=== PATIENT | male | born 1940 | race Caucasian/White ===

== ENCOUNTER 2018-02-08 08:22 | Inpatient (IN) | payer MEDICARE, OTHER, SELFPAY ==
[2018-01-31 14:04] VITALS: BMI 28.3
[2018-02-08] VITALS (15 sets, daily range): BP systolic 99–144; BP diastolic 49–86; PULSE 52–67; RESP 6–20; TEMP 35.5–36.2; O2SAT 93–100; BMI 28.3
--- NOTE | 2018-02-08 | DI.RAD.S_ITS ---
PROCEDURE: XR LUMBAR SPINE 2-3V INDICATIONS: TLIF TECHNIQUE: 2 views of the lumbar spine were acquired. COMPARISON: [facility], , L-SPINE 2-3 VIEWS, 09/29/2009, 8:34. FINDINGS: Bones: Intraoperative evaluation after placement of transverse pedicle screws and vertical fixation rods and a interbody L5-S1 cage disc prostheses. Soft tissues: Overlying bowel gas pattern is normal. No suspicious soft tissue calcifications. IMPRESSION: Normal alignment after L5-S1 posterior fixation and interbody cage disc prosthesis. Dictated by: Jerry Dorantes M.D. on 02/08/2018 at 16:17 Approved by: Jerry Dorantes M.D. on 02/08/2018 at 16:18
[2018-02-08] MEDS: LACTATED RINGERS 1,000 ML 42 ML IV ×2 (09:40→14:48)
--- NOTE | 2018-02-08 11:46 | PM.PREOP ---
Pre-operative Note Interval Note Pre-op Check: Yes History & Physical Reviewed by Physician and Yes Exam Performed Changes: No
--- NOTE | 2018-02-08 12:21 | P.OP_ITS ---
Operative Date/Time/Diagnoses Date of procedure: 02/08/18 Time of procedure: 16:13 Pre-op diagnosis: Lumbar stenosis with radiculopathy Post-op diagnosis: same Procedure & Clinicians Procedure: L3-4, L4-5, L5-S1 laminectomy L5-S1 TLIF (post/post innerbody fusion) Cage Screws at L5-S1 Iliac crest bone graft Microscope Placement of epidural catheter Same procedure as scheduled: Yes Indications: [age] year old male with intractable pain from stenosis. They had failed conservative management and requested operative intervention. Risks and benefits of surgery were discussed and appropriate consents were obtained. Surgeon: Jose Pedroza Tax Accounting Manager: Lianet Ruby Anesthesia Type: General Operative Notes Findings: none Closure Type: primary Specimen(s): none sent Implants & Drains: NuVasive open and MAS Reline screws Globus Rise cage Applied: catheter Estimated Blood Loss (mL): 50 Procedure in detail: The patient was brought to the operating room and intubated on the table. A time-out was performed. They were then rolled over to the well-padded Emil table in the prone position. Preoperative antibiotics were given. The back was prepped and draped in the standard sterile fashion. A 8 cm incision was made in the midline. We dissected down the right sided paraspinals to expose the lamina out over the facets to the transverse processes at L5 and S1 as well as the lamina up to L3. A bur was used to decorticate the junction of the transverse process and facet. We then advanced a gear shifter down the right pedicle of L5 using neuromonitoring. We then checked with a ball probe for a floor and four sanchez. We then tapped and again checked with a ball probe. A bur was used to decorticate the transverse process and the L5 screw was placed into the pedicle. The same technique was used to place a screw in the S1 pedicle. Using a combination of bur and Kerrison rongeur a laminectomy was performed from the right side. We cleared over past the midline and carefully depressed the dura until we were able to decompress the opposite side. We cleared out the neural foramen. At L5-S1 we had to perform a complete facetectomy to fully open up the neural foramen. This completed the laminectomies at L3-4, L4-5 and L5-S1. We then began the TLIF prep. We carefully cleaned up the remainder of the foramen until we could easily retract the exiting root as well as clearing medially below the dura and expose the disc space. The disc was prepped with bipolar and then an annulotomy was performed. We performed a diskectomy using a combination of paddles, ariadna, Kerrison, and curettes. We distracted the disc using a paddle and locked the retractor in an open position. We then filled the disc space with Osteocell bone graft. We then placed the globus Rise cage under fluoroscopy and then filled this in with more bone graft. The distraction on the retractor was released to compress down. This completed the posterior interbody fusion portion of the TLIF at L5-S1. We then placed the salazar and locked down the set screws. The wound was copiously irrigated. A small stab incision was made over the PSIS. We used a Jamshidi needle to aspirate several mL of bone marrow from the pelvis. This was mixed with the remaining Osteocell and combined with all of the locally harvested bone graft and placed in the posterolateral gutter for the posterior fusion of the TLIF at L5-S1. An epidural catheter was then placed in the spinal canal by carefully depressing the dura and advancing it 6 cm cephalad under the remaining lamina without resistance. The muscle fascia was closed. The catheter was then injected with a solution containing 4 mL of 0.5% Marcaine, 1 mg Stadol, 4 mg Duramorph, and 100 mcg of fentanyl. This was injected without resistance and the catheter was pulled. Using fluoroscopy, a 3 cm left-sided incision was made over L5-S1. We percutaneously placed Jamshidi needles down the left pedicles of L5 and S1 using fluoroscopy and neural monitoring. These were switched out to guidewires , tapped and the MAS Reline screws were placed on the left at L5 and S1. A salazar was placed and locked down. Final x-rays were taken. The wound was irrigated and the fascia was closed. Vancomycin powder was placed in the wounds. The superficial and skin were closed. A sterile dressing was placed. The patient was then rolled over extubated and brought to recovery room without complications. Complications: none Condition: stable Disposition: PACU Plan for aftercare: Inpatient. Up with therapy.
[2018-02-08] MEDS: CEFAZOLIN 2 GM/100 ML FROZ.PIGGY IV ×2 (12:45→21:48)
--- NOTE | 2018-02-08 13:33 | SUR.OPER ---
Prone on spine table, head in foam head support, padded chest and pelvic supports, gel pad at knees, lower legs supported by pillows; nipples, genitalia and toes free of pressure, arms secured on foam padded arm boards at <90 degrees abduction. Tape over blanket at thigh secured to table.
[2018-02-08] MEDS: SODIUM CHLORIDE 0.9% 1,000 ML, GENTAMICIN 80 MG IRR ×2 (13:58)
[2018-02-08] MEDS: THROMBIN (BOVINE) 5,000 UNIT VIAL 5000 UNIT TOP (13:59)
[2018-02-08] MEDS: VANCOMYCIN 1,000 MG VIAL 1000 MG TOP (14:21)
[2018-02-08] MEDS: BUPIVACAINE 0.5% (PF) 4 ML, MORPHINE-PF 4 MG, BUTORPHANOL 1 MG, fentaNYL 100 MCG INJ (15:24)
--- NOTE | 2018-02-08 16:56 | SUR.PHASEI ---
Bilateral lower extremities pink with strong pedal pulses. pt still sleeping unable to follow commands.
--- NOTE | 2018-02-08 17:06 | SUR.PHASEI ---
equal and strong grasps bilateral.
[2018-02-08] MEDS: LACTATED RINGERS 1,000 ML 125 ML IV (18:59)
--- NOTE | 2018-02-08 21:54 | PC.NURSE ---
PATIENT REMAINS VERY SEDATE,SLEEPING .WAKES BIEFLY BUT RIGHT BACK TO SLEEP,PO MEDS HELD FOR SAFETY
[2018-02-09] MEDS: LACTATED RINGERS 1,000 ML 125 ML IV (02:07)
[2018-02-09] MEDS: CEFAZOLIN 2 GM/100 ML FROZ.PIGGY IV (05:13)
[2018-02-09 05:20] VITALS: BP 114/64; PULSE 64; RESP 16; TEMP 35.8; O2SAT 96
[2018-02-09 06:08] LABS: Hematocrit 39.4 % (41-53); Hemoglobin 13.5 g/dL (13.5-17.5)
--- NOTE | 2018-02-09 07:39 | PM.PNPO.1 ---
Subjective Date Patient Seen: 02/09/18 Time Patient Seen: 07:40 Interval history: He is doing well. Pain is 1/10. Exam Vital Signs (past 8 hours): - 02/08/18 23:40 02/09/18 05:20 Temperature 95.9 F L 96.5 F L Pulse Rate 52 L 64 Respiratory Rate 16 16 Blood Pressure 99/49 L 114/64 Pulse Oximetry 94 96 Oxygen Delivery Method Room Air Const Orientation: alert and oriented x3 Back/Spine/Pelvis Other: Moderate drainage on dressing. 5/5 motor both lower extremities Objective Labs Result Diagrams: 02/09/18 05:30 Labs: Laboratory Results - last 24 hr 02/09/18 05:30 Hgb 13.5 Hct 39.4 L Assessment & Plan Post-op Postoperative Procedures Operation Date: 02/08/18 10:45 Actual Procedures Side Surgeon p L3-S1 Laminectomies, L5-S1 Instrumented Posterior Fusion with Bone Graft Jose Pedroza MD he is doing very well. Change dressing. Mobilize with physical therapy. Anticipate discharge in 1-2 days. Quality VTE Deep Vein Thrombosis/Pulmonary Embolism Present on Admission: No
[2018-02-09 08:00] VITALS: BP 102/65; PULSE 68; RESP 16; TEMP 35.7; O2SAT 94
[2018-02-09] MEDS: DOCUSATE 100 MG CAPSULE PO ×2 (09:02→20:44)
[2018-02-09] MEDS: CELECOXIB 200 MG CAPSULE PO ×2 (09:02→20:44)
[2018-02-09] MEDS: PROPRANOLOL 10 MG TABLET 20 MG PO (09:02)
[2018-02-09] MEDS: HYDROCODONE/ACET 5/325 TABLET 1 TAB PO (09:03)
[2018-02-09] MEDS: DOXAZOSIN 4 MG TABLET 8 MG PO (09:28)
[2018-02-09] MEDS: NALBUPHINE 20 MG/ML AMPUL 5 MG IV (10:55)
[2018-02-09] MEDS: METOCLOPRAMIDE 10 MG/2 ML INJ IV (10:55)
--- NOTE | 2018-02-09 12:35 | PT.IPTN ---
Current Diagnoses Spinal stenosis, lumbar region with neurogenic claudication (02/08/18) Other intervertebral disc degeneration, lumbar region (02/08/18) Surgery Performed Operation Date: 02/08/18 10:45 Actual Procedures p L3-S1 Laminectomies, L5-S1 Instrumented Posterior Fusion with Bone Graft - Jose Pedroza MD Physical Therapy Treatment Note M2 PT-IP Current Condition Start: 02/09/18 12:56 Freq: NEEDED Status: Active Protocol: Document 02/09/18 11:05 AB (Rec: 02/09/18 13:19 AB [id number]) Physical Therapy Current Condition Current Condition Evaluation Date 02/09/18 Treatment Diagnosis s/p L3S1 TLIF and laminectomy; difficulties in walking Onset Date 02/08/18 Precautions Lumbar Precautions Log Roll No Twisting Limit Bending Lifting Restriction of 10 lbs Gait Belt above Incisional Area M3 PT-IP Subjective Start: 02/09/18 12:56 Freq: NEEDED Status: Active Protocol: Document 02/09/18 12:35 AB (Rec: 02/09/18 13:43 AB [id number]) Subjective Physical Therapy Visit Type Type Treatment Note Visit Start Time 12:35 Visit Stop Time 12:45 Total Visit Minutes 10 Number of CIGARETTE CATCHER Visits 0 Physical Therapy Visit Comments Patient Comments pt requested to go back to bed Therapy Pain Assessment Pain When Pain Assessed At Rest Pain Present Pain Present Pain Reported Location Lower Breast Intensity 4 Scale Used Numeric (1 - 10) Pain Management Techniques Re-positioning Timing of Activity with Medications M4 PT-IP Mobility and Gait Start: 02/09/18 12:56 Freq: NEEDED Status: Active Protocol: Document 02/09/18 12:35 AB (Rec: 02/09/18 13:43 AB [id number]) PT-Bed Mobility Assessment Sit to Supine Sit to Supine Standby Assistance PT-Transfer Assessment Sit to and From Stand Sit to and from Stand Contact Guard Assistance Equipment Transfer Assistive Device Gait Belt Front Wheeled Walker Orthotic/Prosthetic Devices or Brace: No Transfers Transfer Destination Bed Transfer Technique Stand Step Pivot Transfer Ability Level of Assist Contact Guard Assistance Use of Upper Extremities Comments Mobility Comments BP sitting on chair prior to transfers: 101/64 M5 PT-IP Objective Assessments Start: 02/09/18 12:56 Freq: NEEDED Status: Active Protocol: Document 02/09/18 11:05 AB (Rec: 02/09/18 13:19 AB [id number]) Orientation Orientation/Cognition Level of Alertness Alert Orientation Name Age Birthday Month Date Year Day of Week Place Situation Safety Awareness Decreased Safety Awareness Comments pt is alert but is sleepy but able to hold a conversation Gross Range of Motion Lower Extremity ROM Assessment Within Functional Limits Strength Lower Extremity Strength Assessment Left Impaired Knee 4-/5 Muscle Tone Muscle Tone WNL Yes M6 PT-IP Treatment Start: 02/09/18 12:56 Freq: NEEDED Status: Active Protocol: Document 02/09/18 12:35 AB (Rec: 02/09/18 13:43 AB [id number]) Physical Therapy Treatment Education Education Provided Precautions Weight Bearing Status Post-Op Packet Safety M7 PT-IP Assessment and Plan Start: 02/09/18 12:56 Freq: NEEDED Status: Active Protocol: Document 02/09/18 12:35 AB (Rec: 02/09/18 13:43 AB [id number]) PT Summary Assessment and Plan Potential Rehabilitation Potential Good Summary Impairments Pain ROM Strength Balance Tone Cognition Bed Mobility Transfers Gait Activity Tolerance Progress Towards Goals Slow Progress due to Medical Issues Slow Progress due to Activity Tolerance Assessment Summary pt continues to be limited due to decrease activity tolerance with c/o dizziness. will continue to assess. Goals Bed Mobility Goal Independent Transfer Goal Independent Front Wheeled Walker Gait Goal Independent Front Wheel Walker Gait Distance 200 Other Goals up/down 3 steps with L rail ascending Days to Meet Goals 3 Frequency of Treatment Frequency Of Treatment Twice a Day Treatment Plan Physical Therapy Treatment Plan Bed Mobility Training Transfer Training Gait Training Therapeutic Exercise Balance Retraining Post Op Education Discharge Planning Hot or Cold Pack Neuromuscular Re-ed Coordination Retraining Manual Therapy Other Recommendations and Next Treatment ambulation Focus Recommendations To Nursing Amount of Assist Needed 1 Person Assist Discharge Recommendations PT Discharge Recommendations Home with Assistance Equipment Needed for Home Before FWW: spouse stated that they Discharge can get one
[2018-02-09] MEDS: ONDANSETRON 4 MG/2 ML INJ IV (12:54)
--- NOTE | 2018-02-09 13:05 | PT.IIE ---
Current Diagnoses Spinal stenosis, lumbar region with neurogenic claudication (02/08/18) Other intervertebral disc degeneration, lumbar region (02/08/18) Surgery Performed Operation Date: 02/08/18 10:45 Actual Procedures p L3-S1 Laminectomies, L5-S1 Instrumented Posterior Fusion with Bone Graft - Jose Pedroza MD Surgical History (Last Updated 01/31/18 @ 15:29 by Alee Noel, RN) H/O arthroscopic knee surgery (Acute) History of cataract extraction (Acute) History of colonoscopy (Acute) S/P epidural steroid injection (Acute) History of carpal tunnel repair History of cataract removal with insertion of prosthetic lens History of tonsillectomy Medical History (Last Updated 01/31/18 @ 15:29 by Alee Noel, RN) BPH (benign prostatic hyperplasia) (Acute) Bradycardia (Acute) COPD (chronic obstructive pulmonary disease) (Acute) Hemangioma (Acute) History of migraine (Acute) History of vertigo (Acute) Low back pain (Acute) Right buttock pain (Acute) Physical Therapy Inpatient Evaluation/Re-Eval M1 PT/OT-IP Prior Functional Status Start: 02/09/18 12:56 Freq: NEEDED Status: Active Protocol: Document 02/09/18 11:05 AB (Rec: 02/09/18 13:19 AB [id number]) Medical Review Prior Functional Status Medical History Reviewed Yes Communication able to make needs known Mobility and Gait stated that he is independent with all mobilities and ambulation without AD Social History Household Members spouse Living Arrangements House Number of Floors (Floors) One Floor Number of Stairs To Enter/Railing? 3 Stairs into house w/ L rail ascending Home Environment Standard Height Toilet Walk in Shower Tub/Shower Built-In Shower Seat Home Equipment Manual Wheelchair Power Wheelchair/Scooter Grab Bars Near Toilet Employment Status Retired M2 PT-IP Current Condition Start: 02/09/18 12:56 Freq: NEEDED Status: Active Protocol: Document 02/09/18 11:05 AB (Rec: 02/09/18 13:19 AB [id number]) Physical Therapy Current Condition Current Condition Evaluation Date 02/09/18 Treatment Diagnosis s/p L3S1 TLIF and laminectomy; difficulties in walking Onset Date 02/08/18 Precautions Lumbar Precautions Log Roll No Twisting Limit Bending Lifting Restriction of 10 lbs Gait Belt above Incisional Area M3 PT-IP Subjective Start: 02/09/18 12:56 Freq: NEEDED Status: Active Protocol: Document 02/09/18 11:05 AB (Rec: 02/09/18 13:19 AB [id number]) Subjective Physical Therapy Visit Type Type Initial Evaluation Visit Start Time 11:05 Visit Stop Time 11:50 Total Visit Minutes 45 Number of CARBON BRUSHES ASSEMBLER Visits 0 Physical Therapy Visit Comments Patient Comments pt c/o nausea with (+) emesis, nurse is aware Therapy Pain Assessment Pain When Pain Assessed During Mobility Pain Present Pain Present Pain Reported Location Lower Breast Intensity 4 Scale Used Numeric (1 - 10) Pain Management Techniques Timing of Activity with Medications M4 PT-IP Mobility and Gait Start: 02/09/18 12:56 Freq: NEEDED Status: Active Protocol: Document 02/09/18 11:05 AB (Rec: 02/09/18 13:19 [id number]) PT-Bed Mobility Assessment Rolling Type of Rolling Log Rolling Level of Assist Minimal Assistance Supine to Sit Supine to Sit Minimal Assistance Sit to Supine Sit to Supine Standby Assistance Scooting Scooting to Edge of Bed Standby Assistance PT-Transfer Assessment Sit to and From Stand Sit to and from Stand Contact Guard Assistance Equipment Transfer Assistive Device Bed Rail Front Wheeled Walker Orthotic/Prosthetic Devices or Brace: No Transfers Transfer Destination Chair Transfer Technique Stand Step Pivot Transfer Ability Level of Assist Contact Guard Assistance Comments Mobility Comments pt with c/o nausea and dizziness. BP monitored: BP supine: 118/76 [place] 58 O2 sat 97 % BP sitting on EOB: 112/67 BP standing using FWW for support: 96/64 BP after 2 mins in standin/72 pt sat down and rested. BP after ambulation: 98/59 pt sat and rested again and c/o nausea with (+) emesis. BP sitting on chair: 95/62 . reclined pt on chair with LE elevated: BP: 123/76 [place] 64 Gait Assessment Gait Gait Assistance Required: Contact Guard Assist Distance (Feet) (feet) 5 Able to Maintain Weight Bearing Status Yes During Gait Assistive Devices Assistive Device Gait Belt Front Wheeled Walker Gait Deviations General Gait Pattern Decreased Stride Length Decreased Feet Clearance Factors Limiting Gait Function Factors Limiting Gait Function Decreased Activity Tolerance Decreased Strength Pain Poor Balance Poor Safety Awareness PT-Balance Assessment Sitting Balance and Reactions Static Sitting Balance Ability Good Dynamic Sitting Balance Ability Good Standing Balance and Reactions Static Standing Balance Ability Fair Dynamic Standing Balance Ability Fair Device Used FWW M5 PT-IP Objective Assessments Start: 02/09/18 12:56 Freq: NEEDED Status: Active Protocol: Document 02/09/18 11:05 AB (Rec: 02/09/18 13:19 AB [id number]) Orientation Orientation/Cognition Level of Alertness Alert Orientation Name Age Birthday Month Date Year Day of Week Place Situation Safety Awareness Decreased Safety Awareness Comments pt is alert but is sleepy but able to hold a conversation Gross Range of Motion Lower Extremity ROM Assessment Within Functional Limits Strength Lower Extremity Strength Assessment Left Impaired Knee 4-/5 Muscle Tone Muscle Tone WNL Yes M6 PT-IP Treatment Start: 02/09/18 12:56 Freq: NEEDED Status: Active Protocol: Document 02/09/18 11:05 AB (Rec: 02/09/18 13:19 AB [id number]) Physical Therapy Treatment Education Education Provided Precautions Weight Bearing Status Post-Op Packet Safety M7 PT-IP Assessment and Plan Start: 02/09/18 12:56 Freq: NEEDED Status: Active Protocol: Document 02/09/18 11:05 AB (Rec: 02/09/18 13:19 AB [id number]) PT Summary Assessment and Plan Potential Rehabilitation Potential Good Status of Condition at Evaluation Evolving Summary Impairments Pain ROM Strength Balance Coordination Sensation Tone Cognition Bed Mobility Transfers Gait Activity Tolerance Assessment Summary pt requiring one person assist with mobility. activity limited due to decrease in BP and pt c/o nausea with (+) emesis and dizziness. pt plans to go home with spouse to assist him. cargiver training will be conducted when appropriate as well as stair climbing training. Goals Bed Mobility Goal Independent Transfer Goal Independent Front Wheeled Walker Gait Goal Independent Front Wheel Walker Gait Distance 200 Other Goals up/down 3 steps with L rail ascending Days to Meet Goals 3 Frequency of Treatment Frequency Of Treatment Twice a Day Treatment Plan Physical Therapy Treatment Plan Bed Mobility Training Transfer Training Gait Training Therapeutic Exercise Balance Retraining Post Op Education Discharge Planning Hot or Cold Pack Neuromuscular Re-ed Coordination Retraining Manual Therapy Other Recommendations and Next Treatment ambulation Focus Recommendations To Nursing Amount of Assist Needed 1 Person Assist Discharge Recommendations PT Discharge Recommendations Home with Assistance Equipment Needed for Home Before FWW: spouse stated that they Discharge can get one
--- NOTE | 2018-02-09 13:47 | OT.IP.EVAL ---
Current Diagnoses Spinal stenosis, lumbar region with neurogenic claudication (02/08/18) Other intervertebral disc degeneration, lumbar region (02/08/18) Surgery Performed Operation Date: 02/08/18 10:45 Actual Procedures p L3-S1 Laminectomies, L5-S1 Instrumented Posterior Fusion with Bone Graft - Jose Pedroza MD Past Medical History (Last Updated 01/31/18 @ 15:29 by Alee Noel, RN) BPH (benign prostatic hyperplasia) (Acute) Bradycardia (Acute) COPD (chronic obstructive pulmonary disease) (Acute) Hemangioma (Acute) History of migraine (Acute) History of vertigo (Acute) Low back pain (Acute) Right buttock pain (Acute) Surgical History (Last Updated 01/31/18 @ 15:29 by Alee Noel, RN) H/O arthroscopic knee surgery (Acute) History of cataract extraction (Acute) History of colonoscopy (Acute) S/P epidural steroid injection (Acute) History of carpal tunnel repair History of cataract removal with insertion of prosthetic lens History of tonsillectomy Occupational Therapy Inpatient Evaluation/Re-Eval M1 PT/OT-IP Prior Functional Status Start: 02/09/18 12:56 Freq: NEEDED Status: Active Protocol: Document 02/09/18 11:05 AB (Rec: 02/09/18 13:19 AB [id number]) Medical Review Prior Functional Status Medical History Reviewed Yes Communication able to make needs known Mobility and Gait stated that he is independent with all mobilities and ambulation without AD Social History Household Members spouse Living Arrangements House Number of Floors (Floors) One Floor Number of Stairs To Enter/Railing? 3 Stairs into house w/ L rail ascending Home Environment Standard Height Toilet Walk in Shower Tub/Shower Built-In Shower Seat Home Equipment Manual Wheelchair Power Wheelchair/Scooter Grab Bars Near Toilet Employment Status Retired M1 PT/OT-IP Prior Functional Status Start: 02/09/18 13:17 Freq: NEEDED Status: Active Protocol: Document 02/09/18 13:28 [facility] (Rec: 02/09/18 13:47 [facility] [id number]) Medical Review Prior Functional Status Medical History Reviewed Yes Communication able to make needs known Mobility and Gait stated that he is independent with all mobilities and ambulation without AD Activities of Daily Living and IADL's Pt states needing increased time to do all needs due to pain. Social History Household Members spouse Living Arrangements House Number of Floors (Floors) One Floor Number of Stairs To Enter/Railing? 3 Stairs into house w/ L rail ascending Home Environment Standard Height Toilet Walk in Shower Tub/Shower Built-In Shower Seat Home Equipment Manual Wheelchair Power Wheelchair/Scooter Grab Bars Near Toilet Employment Status Retired M2 OT-IP Current Condition Start: 02/09/18 13:17 Freq: Status: Active Protocol: Document 02/09/18 13:28 [facility] (Rec: 02/09/18 13:47 [facility] [id number]) Occupational Therapy Current Condition Current Condition Evaluation Date 02/09/18 Treatment Diagnosis Lumbar Stenosis Diagnosis Onset Date 02/08/18 Post Operative Precautions Lumbar Precautions Log Roll No Twisting Limit Bending Lifting Restriction of 10 lbs Gait Belt above Incisional Area M3 OT- IP Subjective and Pain Start: 02/09/18 13:17 Freq: Status: Active Protocol: Document 02/09/18 13:28 [facility] (Rec: 02/09/18 13:47 [facility] [id number]) OT- Subjective Occupational Therapy Visit Type Type Initial Evaluation Visit Start Time 11:07 Visit Stop Time 11:44 Total Visit Minutes 37 Occupational Therapy Visit Comments Patient Comments Pt feeling very sleepy and tired. OT Pain Assessment Pain When Pain Assessed At Rest Pain Present Pain Present Pain Reported Location Lower Breast Intensity 2 Scale Used Numeric (1 - 10) M6 OT- IP Functional Cognition Start: 02/09/18 13:17 Freq: Status: Active Protocol: Document 02/09/18 13:28 [facility] (Rec: 02/09/18 13:47 [facility] [id number]) Cognitive Factors Limiting Selfcare Function Cognitive Ability Level of Alertness Drowsy Patient Orientation Name Place Situation Attention Span Ability Capable of Focused Attention Unable to Sustain Attention Ability to Follow Commands Able to Follow One Step Commands Memory Description Short Term Impaired Safety Awareness Decreased Ability to Apply Precautions Underestimates Need for Assistance Cognitive Comments Cognitive Assessment Comments Pt very drowsy and sleepy and having trouble staying alert. OT- Vision and Hearing OT- Hearing Assessment OT- Hearing Assessment WFL M7 OT- IP Mobility and Balance Start: 02/09/18 13:17 Freq: Status: Active Protocol: Document 02/09/18 13:28 [facility] (Rec: 02/09/18 13:47 [facility] [id number]) OT- Bed Mobility Assessment Rolling Type of Rolling Roll to Left Level of Assistance Contact Guard Assistance Supine to Sit Supine to Sit Assist Contact Guard Assistance OT-Transfer Assessment Sit to and From Stand Sit to and from Stand Minimal Assistance Transfers Transfer Ability Minimal Assistance Technique Transfer Destination Bed Chair Transfer Technique Stand Step Pivot Devices Transfer Assistive Devices Gait Belt Front Wheeled Walker Comments Mobility Comments GIANNA with FWW and heavy use of arms on FWW. OT- Balance Assessment Sitting Balance and Reactions Static Sitting Balance Ability Normal Dynamic Sitting Balance Ability Good Standing Balance and Reactions Static Standing Balance Ability Fair Dynamic Standing Balance Ability Fair M8 OT- IP Objective Assessments Start: 02/09/18 13:17 Freq: Status: Active Protocol: Document 02/09/18 13:28 [facility] (Rec: 02/09/18 13:47 [facility] [id number]) OT Gross Range of Motion Upper Extremity Range of Motion Assessment Within Functional Limits OT Strength Upper Extremity Strength Assessment Within Functional Limits M9 OT- IP Assessment and Plan Start: 02/09/18 13:17 Freq: Status: Active Protocol: Document 02/09/18 13:28 [facility] (Rec: 02/09/18 13:47 [facility] [id number]) OT Summary Assessment and Plan Potential Rehabilitation Potential Excellent Analytic Complexity at Evaluation Low Summary OT Impairments Pain Functional Cognition Functional Mobility Dressing Toileting Bathing Toilet Transfers Shower Transfers Progress Towards Goals Slow Progress due to Medical Issues Assessment Summary Pt low complexity and main barrier in low BP, decreased awareness of back precautions, activity tolerance and will need assist for ADl's and bed mobility needs. Pt has supportive to assist at home when medically stable. Goals Grooming Goal Standby Assistance Dressing Goal Minimal Assistance Toileting Goal Standby Assistance Bathing Goal Minimal Assistance Toilet Transfer Goal Standby Assistance Shower Transfer Goal Contact Guard Assistance Patient/Caregiver Education Goal Caregiver Independent Assisting Patient Days to Meet Goals 3 Frequency of Treatment Frequency Of Treatment Once a Day Treatment Plan OT Treatment Plan ADL Training Functional Cognition Training Functional Mobility Patient/Family Education Discharge Planning Other Treatment Recommendations and Next Practice AED for ADL's, family Treatment Focus training. Discharge Recommendations OT Discharge Recommendations Home with Assistance Home Equipment Needs shower chair or tub bench
--- NOTE | 2018-02-09 15:45 | PC.NURSE ---
Ortho: Pt had 2 episodes of emesis. Recieved reglan the first time and zofran the second time. He feels the nausea and vomiting are from the vicodin he took today. MD was called and new order received for oxycodone. Med has been offered, however the patient refuses due to feeling sleepy. Itchy and got nubain which was effective. When dressing changed it was found to be saturated and pt had a lg amt of sero-sang fluid sitting in the dressing. MD Pedroza called to notify of pts condition w/emesis and dressing being saturated, asked about spinal headache or problems of this nature. See new md orders, changed pain meds, keep an eye on dressing, give antiemetic freq. Pt made aware. Orthos - no problems, ppp, feet =/warm. Brisk cap refill. Hopefully will feel better tomorrow. Cont w/poc.
[2018-02-09 16:30] VITALS: BP 111/58; PULSE 72; RESP 16; TEMP 36.6; O2SAT 94
[2018-02-09 19:10] VITALS: BP 107/57; PULSE 77; RESP 16; TEMP 36.8; O2SAT 94
[2018-02-09] MEDS: SENNOSIDES 8.6 MG TABLET 17.2 MG PO (20:44)
[2018-02-09] MEDS: GABAPENTIN 300 MG CAPSULE PO (20:45)
--- NOTE | 2018-02-09 21:00 | PC.NURSE ---
Addendum entered by Cortez Crawford R.N. 02/09/18 21:02: [facility] ON AT PRESENT BUT THEY HAVE BEEN TURNING THEM OFF AT TIMES,PATIENT DOES NOT LIKE THEM. Original Note: PATIENT RESTING QUIETLY,DENIES NEED FOR PAIN MEDS,NO NAUSEA /VOMITING THIS SHIFT.CLAY PATENT CLEAR,ROOM AIR BREATH SOUNDS CLEAR. PATIENTS IS ROOMING IN.
[2018-02-09 23:45] VITALS: BP 100/58; PULSE 81; RESP 16; TEMP 36.7; O2SAT 92
[2018-02-10 06:21] VITALS: BP 114/70; PULSE 68; RESP 16; TEMP 36.6; O2SAT 93
[2018-02-10 08:00] VITALS: BP 116/73; PULSE 89; RESP 16; TEMP 36.7; O2SAT 96
[2018-02-10] MEDS: DOXAZOSIN 4 MG TABLET 8 MG PO (08:28)
[2018-02-10] MEDS: CELECOXIB 200 MG CAPSULE PO (08:28)
[2018-02-10] MEDS: DOCUSATE 100 MG CAPSULE PO (08:28)
[2018-02-10] MEDS: PROPRANOLOL 10 MG TABLET 20 MG PO (08:28)
--- NOTE | 2018-02-10 08:40 | PM.PNPO.1 ---
Subjective Date Patient Seen: 02/10/18 Time Patient Seen: 08:40 Interval history: No more nausea and he is feeling much better. Pain is about a 3, all in the back. Exam Vital Signs (past 8 hours): - 02/10/18 06:21 Temperature 97.8 F Pulse Rate 68 Respiratory Rate 16 Blood Pressure 114/70 Pulse Oximetry 93 Oxygen Delivery Method Room Air Oxygen Flow Rate 0 Const Orientation: alert and oriented x3 Back/Spine/Pelvis Other: Dressing clean dry intact, but had saturated through earlier today according to nursing and was recently changed. 5/5 motor both lower extremities. Objective Labs Result Diagrams: 02/09/18 05:30 Assessment & Plan Post-op Postoperative Procedures Operation Date: 02/08/18 10:45 Actual Procedures Side Surgeon p L3-S1 Laminectomies, L5-S1 Instrumented Posterior Fusion with Bone Graft Jose Pedroza MD he appears to be doing well with pain control. However due to his nausea, he was not out of bed much yesterday. We will get him up with physical therapy. If he has good pain control and is mobilizing well, he can go home. However, may require 1 more day for mobility as he was set back from his nausea day yesterday. Quality VTE Deep Vein Thrombosis/Pulmonary Embolism Present on Admission: No
--- NOTE | 2018-02-10 09:45 | PT.IPTN ---
Current Diagnoses Spinal stenosis, lumbar region with neurogenic claudication (02/08/18) Other intervertebral disc degeneration, lumbar region (02/08/18) Surgery Performed Operation Date: 02/08/18 10:45 Actual Procedures p L3-S1 Laminectomies, L5-S1 Instrumented Posterior Fusion with Bone Graft - Jose Pedroza MD Physical Therapy Treatment Note M2 PT-IP Current Condition Start: 02/09/18 12:56 Freq: NEEDED Status: Active Protocol: Document 02/10/18 09:45 [facility] (Rec: 02/10/18 09:59 [facility] [id number]) Physical Therapy Current Condition Current Condition Evaluation Date 02/09/18 Treatment Diagnosis s/p L3S1 TLIF and laminectomy; difficulties in walking Onset Date 02/08/18 Precautions Lumbar Precautions Log Roll No Twisting Limit Bending Lifting Restriction of 10 lbs Gait Belt above Incisional Area M3 PT-IP Subjective Start: 02/09/18 12:56 Freq: NEEDED Status: Active Protocol: Document 02/10/18 09:45 [facility] (Rec: 02/10/18 09:59 [facility] [id number]) Subjective Physical Therapy Visit Type Type Treatment Note Visit Start Time 09:20 Visit Stop Time 09:45 Total Visit Minutes 25 Number of MANAGER GROUP HOME Visits 0 Physical Therapy Visit Comments Patient Comments Pt notes he slept well, although he does not like that the bed is air filled. Minimal pain, no nausea, lightheadedness. Short Term Goals go home today M4 PT-IP Mobility and Gait Start: 02/09/18 12:56 Freq: NEEDED Status: Active Protocol: Document 02/10/18 09:45 [facility] (Rec: 02/10/18 09:59 [facility] [id number]) PT-Bed Mobility Assessment Rolling Type of Rolling Log Rolling Level of Assist Independent Supine to Sit Supine to Sit Independent Sit to Supine Sit to Supine Independent Scooting Scooting to Edge of Bed Independent PT-Transfer Assessment Sit to and From Stand Sit to and from Stand Standby Assistance Equipment Transfer Assistive Device Gait Belt Front Wheeled Walker Transfers Transfer Destination Bed Chair Transfer Technique Stand Step Pivot Transfer Ability Level of Assist Standby Assistance Comments Mobility Comments incentive spirometer used x3 and pt given urinal. Gait Assessment Gait Gait Assistance Required: Standby Assistance Distance (Feet) (feet) 500 Assistive Devices Assistive Device Gait Belt Front Wheeled Walker Gait Deviations General Gait Pattern Flexed Trunk Factors Limiting Gait Function Factors Limiting Gait Function Pain Poor Balance Comments Gait Comments Occasional VC with turning to keep feet within base of FWW. BP standing L arm: 117/65, after session standing 104/69- no c/o lightheadedness/ dizziness/nausea Stair Climbing Assessment Evaluation Level of Assist On Stairs Standby Assistance Devices Stair Climbing Assistive Devices Left Railing Technique/Endurance Stair Climbing Direction Ascend and Descend Stair Climbing Technique Step Over Step Number of Steps Climbed 3 Query Text: Stair Climbing Set # Repetitions (reps) 1 PT-Balance Assessment Sitting Balance and Reactions Static Sitting Balance Ability Good Dynamic Sitting Balance Ability Good Standing Balance and Reactions Static Standing Balance Ability Good Dynamic Standing Balance Ability Good M5 PT-IP Objective Assessments Start: 02/09/18 12:56 Freq: NEEDED Status: Active Protocol: Document 02/09/18 11:05 [facility] (Rec: 02/09/18 13:19 [facility] [id number]) Orientation Orientation/Cognition Level of Alertness Alert Orientation Name Age Birthday Month Date Year Day of Week Place Situation Safety Awareness Decreased Safety Awareness Comments pt is alert but is sleepy but able to hold a conversation Gross Range of Motion Lower Extremity ROM Assessment Within Functional Limits Strength Lower Extremity Strength Assessment Left Impaired Knee 4-/5 Muscle Tone Muscle Tone WNL Yes M6 PT-IP Treatment Start: 02/09/18 12:56 Freq: NEEDED Status: Active Protocol: Document 02/10/18 09:45 [facility] (Rec: 02/10/18 09:59 [facility] [id number]) Physical Therapy Treatment Education Education Provided Precautions Safety M7 PT-IP Assessment and Plan Start: 02/09/18 12:56 Freq: NEEDED Status: Active Protocol: Document 02/10/18 09:45 [facility] (Rec: 02/10/18 09:59 [facility] [id number]) PT Summary Assessment and Plan Summary Progress Towards Goals Safe For Discharge Assessment Summary POD #2 L3-S1 laminectomies, L5 -S1 instrumented posterior fusion. Pt able to perform mobility with SBA to indep., as well as perform stairs safely. Pt is using a FWW, and recommend that he continue to do so at this time upon d/c before progressing to walking sticks or less restrictive AD. Pt is cleared to d/c home when medically stable. Pt had no dizziness, nausea, lightheadedness during this session. Goals Bed Mobility Goal Independent Transfer Goal Independent Front Wheeled Walker Gait Goal Independent Front Wheel Walker Gait Distance 200 Other Goals up/down 3 steps with L rail ascending Days to Meet Goals 3 Frequency of Treatment Frequency Of Treatment Twice a Day Treatment Plan Other Recommendations and Next Treatment gait, review precautions. Focus Recommendations To Nursing Amount of Assist Needed 1 Person Assist Discharge Recommendations PT Discharge Recommendations Home with Assistance Equipment Needed for Home Before FWW: spouse stated that they Discharge can get one (neighbor to bring one over)
[2018-02-10 12:00] VITALS: BP 124/42; PULSE 75; RESP 16; TEMP 36; O2SAT 97
--- NOTE | 2018-02-10 12:27 | OT.IP.TRT ---
Current Diagnoses Spinal stenosis, lumbar region with neurogenic claudication (02/08/18) Other intervertebral disc degeneration, lumbar region (02/08/18) Surgery Performed Operation Date: 02/08/18 10:45 Actual Procedures p L3-S1 Laminectomies, L5-S1 Instrumented Posterior Fusion with Bone Graft - Jose Pedroza MD Occupational Therapy Treatment Note M2 OT-IP Current Condition Start: 02/09/18 13:17 Freq: Status: Active Protocol: Document 02/09/18 13:28 [facility] (Rec: 02/09/18 13:47 [facility] [id number]) Occupational Therapy Current Condition Current Condition Evaluation Date 02/09/18 Treatment Diagnosis Lumbar Stenosis Diagnosis Onset Date 02/08/18 Post Operative Precautions Lumbar Precautions Log Roll No Twisting Limit Bending Lifting Restriction of 10 lbs Gait Belt above Incisional Area M3 OT- IP Subjective and Pain Start: 02/09/18 13:17 Freq: Status: Active Protocol: Document 02/10/18 12:20 [facility] (Rec: 02/10/18 12:26 [facility] [id number]) OT- Subjective Occupational Therapy Visit Type Type Treatment Note Visit Start Time 10:00 Visit Stop Time 10:30 Total Visit Minutes 30 Occupational Therapy Visit Comments Patient Comments Pt alert today and wanting to go home. OT Pain Assessment Pain When Pain Assessed At Rest Pain Present Pain Present Denied Pain M4 OT- IP ADL's Start: 02/09/18 13:17 Freq: Status: Active Protocol: Document 02/10/18 12:20 [facility] (Rec: 02/10/18 12:26 [facility] [id number]) OT ADL-Grooming General Evaluation Grooming Ability Standby Assistance Comments OT Grooming Comments VC to keep FWW in front of him . OT ADL-Dressing General Eval Upper Body Dressing Ability Standby Assistance Lower Body Dressing Ability Minimal Assistance Comments OT Dressing Comments VC fro back precautions and to use AED for LB dressing needs and to assist as well. M6 OT- IP Functional Cognition Start: 02/09/18 13:17 Freq: Status: Active Protocol: Document 02/10/18 12:20 [facility] (Rec: 02/10/18 12:26 [facility] [id number]) Cognitive Factors Limiting Selfcare Function Cognitive Ability Level of Alertness Alert Patient Orientation Name Place Situation Attention Span Ability Capable of Focused Attention Capable of Sustained Attention Ability to Follow Commands Able to Follow One Step Commands Memory Description Short Term Impaired Safety Awareness Decreased Ability to Apply Precautions Underestimates Need for Assistance Cognitive Comments Cognitive Assessment Comments Pt aleert but still having trouble to incorporate back precautions and needing to assist. M7 OT- IP Mobility and Balance Start: 02/09/18 13:17 Freq: Status: Active Protocol: Document 02/10/18 12:20 [facility] (Rec: 02/10/18 12:26 [facility] [id number]) OT-Transfer Assessment Sit to and From Stand Sit to and from Stand Contact Guard Assistance Transfers Transfer Ability Standby Assistance Contact Guard Assistance Technique Transfer Destination Chair Toilet Transfer Technique Stand Step Pivot Devices Transfer Assistive Devices Gait Belt Front Wheeled Walker Comments Mobility Comments Pt has LOB and cued to stay closer to him when up, pt usually wears shoes at all times at home. OT- Balance Assessment Sitting Balance and Reactions Static Sitting Balance Ability Normal Dynamic Sitting Balance Ability Normal Standing Balance and Reactions Static Standing Balance Ability Good Dynamic Standing Balance Ability Fair M8 OT- IP Objective Assessments Start: 02/09/18 13:17 Freq: Status: Active Protocol: Document 02/09/18 13:28 [facility] (Rec: 02/09/18 13:47 [facility] [id number]) OT Gross Range of Motion Upper Extremity Range of Motion Assessment Within Functional Limits OT Strength Upper Extremity Strength Assessment Within Functional Limits M9 OT- IP Assessment and Plan Start: 02/09/18 13:17 Freq: Status: Active Protocol: Document 02/10/18 12:20 [facility] (Rec: 02/10/18 12:26 [facility] [id number]) OT Summary Assessment and Plan Summary Progress Towards Goals Progressing Toward Goals Assessment Summary Pt's has good understanding for all OT needs for pt and how to assist . Pt to go home possible today , pt wanting to have a bowel movement before gong home. Goals Patient/Caregiver Education Goal Caregiver Independent Assisting Patient Days to Meet Goals 1 Frequency of Treatment Frequency Of Treatment Once a Day Treatment Plan OT Treatment Plan Patient/Family Education Discharge Planning Discharge Recommendations OT Discharge Recommendations Home with Assistance Home Equipment Needs shower chair or tub bench
--- NOTE | 2018-02-10 14:20 | PT.IPTN ---
Current Diagnoses Spinal stenosis, lumbar region with neurogenic claudication (02/08/18) Other intervertebral disc degeneration, lumbar region (02/08/18) Surgery Performed Operation Date: 02/08/18 10:45 Actual Procedures p L3-S1 Laminectomies, L5-S1 Instrumented Posterior Fusion with Bone Graft - Jose Pedroza MD Physical Therapy Treatment Note M2 PT-IP Current Condition Start: 02/09/18 12:56 Freq: NEEDED Status: Active Protocol: Document 02/10/18 14:20 [facility] (Rec: 02/10/18 15:42 [facility] [id number]) Physical Therapy Current Condition Current Condition Evaluation Date 02/09/18 Treatment Diagnosis s/p L3S1 TLIF and laminectomy; difficulties in walking Onset Date 02/08/18 Precautions Lumbar Precautions Log Roll No Twisting Limit Bending Lifting Restriction of 10 lbs Gait Belt above Incisional Area M3 PT-IP Subjective Start: 02/09/18 12:56 Freq: NEEDED Status: Active Protocol: Document 02/10/18 14:20 [facility] (Rec: 02/10/18 15:42 [facility] [id number]) Subjective Physical Therapy Visit Type Type Treatment Note Visit Start Time 14:10 Visit Stop Time 14:25 Total Visit Minutes 15 Number of AIR CHIPPER Visits 0 Physical Therapy Visit Comments Patient Comments pt wants to go home, has not had a BM. M4 PT-IP Mobility and Gait Start: 02/09/18 12:56 Freq: NEEDED Status: Active Protocol: Document 02/10/18 14:20 [facility] (Rec: 02/10/18 15:42 [facility] [id number]) PT-Transfer Assessment Sit to and From Stand Sit to and from Stand Independent Equipment Transfer Assistive Device Front Wheeled Walker Transfers Transfer Destination Chair Transfer Technique Stand Step Pivot Transfer Ability Level of Assist Standby Assistance Comments Mobility Comments VC for foot positioning within FWW Gait Assessment Gait Gait Assistance Required: Independent Distance (Feet) (feet) 500 Assistive Devices Assistive Device Front Wheeled Walker Gait Deviations General Gait Pattern Decreased Feet Clearance Factors Limiting Gait Function Factors Limiting Gait Function Decreased Sensation M5 PT-IP Objective Assessments Start: 02/09/18 12:56 Freq: NEEDED Status: Active Protocol: Document 02/09/18 11:05 [facility] (Rec: 02/09/18 13:19 [facility] [id number]) Orientation Orientation/Cognition Level of Alertness Alert Orientation Name Age Birthday Month Date Year Day of Week Place Situation Safety Awareness Decreased Safety Awareness Comments pt is alert but is sleepy but able to hold a conversation Gross Range of Motion Lower Extremity ROM Assessment Within Functional Limits Strength Lower Extremity Strength Assessment Left Impaired Knee 4-/5 Muscle Tone Muscle Tone WNL Yes M6 PT-IP Treatment Start: 02/09/18 12:56 Freq: NEEDED Status: Active Protocol: Document 02/10/18 09:45 [facility] (Rec: 02/10/18 09:59 [facility] [id number]) Physical Therapy Treatment Education Education Provided Precautions Safety M7 PT-IP Assessment and Plan Start: 02/09/18 12:56 Freq: NEEDED Status: Active Protocol: Document 02/10/18 14:20 [facility] (Rec: 02/10/18 15:42 [facility] [id number]) PT Summary Assessment and Plan Summary Progress Towards Goals Safe For Discharge Assessment Summary Pt is cleared to d/c home when medically stable. It is recommended that he use a FWW upon d/c for safety and increased stability with gait. Goals Bed Mobility Goal Independent Transfer Goal Independent Front Wheeled Walker Gait Goal Independent Front Wheel Walker Gait Distance 200 Other Goals up/down 3 steps with L rail ascending Days to Meet Goals 3 Frequency of Treatment Frequency Of Treatment Twice a Day Treatment Plan Other Recommendations and Next Treatment gait, precaution review Focus Recommendations To Nursing Amount of Assist Needed 1 Person Assist Discharge Recommendations PT Discharge Recommendations Home with Assistance Equipment Needed for Home Before FWW: spouse stated that they Discharge can get one (neighbor to bring one over)
[2018-02-10 16:00] VITALS: BP 109/68; PULSE 82; RESP 18; TEMP 36.9; O2SAT 93
--- NOTE | 2018-02-10 16:20 | PC.NURSE ---
Received discharge orders. Pt and family reviewed instructions. HL D/C'd intact.
--- NOTE | 2018-02-11 08:11 | CM.DANOTE ---
Discharge Planning/Care Management DCP: assessment: late entry: Case received 02/09 and met that morning at 0830 with pt and his . Introduced self and role. Pt was a 78 year old male who admitted 02/08 for a planneed spinal surgery. Surgeon: Dr. Pedroza PCP: Dr. Apodaca. Pt identified his d/c plan as home with his Didi's supportive care. He acknowledged he was aware of his options for d/c dispositions under his Medicare benefit but had no intent of a d/c dispo other than home. Dr. Pedroza did see pt yesterday morning and noted that pain and nausea had set him back about a day. He agreed that pt could go home later in the day if all resolved but that it was fine if pt stayed on for another day. Check in this morning shows that Dr. Pedroza did check in later yesterday afternoon and ok'd pt for d/c home. Pt and his left after 1630 for home ([place]). Pt left before signing VIRI # 2 but remained aware of his appeal rights. As noted, it was his choice to go home yesterday. CM Discharge Assessment Start: 02/11/18 08:09 Freq: Status: Discharge Protocol: Document 02/11/18 08:09 ITV (Rec: 02/11/18 08:11 ITV [id number]) Discharge Planning Assessment Advance Directives? Yes: NOT HERE Advance Directives on File Yes History Provided By Patient Significant Other Medical Record Prior Living Arrangements House Household Members spouse Type of transporation used prior to Drives own vehicle admit Independent with ADL's Yes Is patient alert and oriented? Yes Whiteboard Updated in Patient Room with Yes name and ext. # of Consular Officer Review Status In Process Next Review Type Continued Stay Review
--- NOTE | 2018-02-22 16:00 | PM.DS.1 ---
History of Present Illness Date Patient Seen: 02/10/18 Time Patient Seen: 08:40 Chief complaint: L3-S1 laminectomies codes/dorene notes Narrative: Detail of the patient's H&P can be found in the electronic chart. Discharge Providers Date of admission: 02/08/18 08:22 Primary care physician: Eber Apodaca MD Consults: 02/08/18 17:47 Consult to Occupational Therapy Evaluate & Treat Comment: Physician Instructions: Evaluate and treat Consult to Physical Therapy Evaluate & Treat Comment: Physician Instructions: Evaluate and Treat Discharge provider: Kennedi Carter PA-C Summary Discharge Diagnosis: Lumbar stenosis with radiculopathy Hospital Course: Patient was admitted and taken to the operating room where he had aL3-4, L4-5, L5-S1 laminectomy L5-S1 TLIF (post/post innerbody fusion) by Dr. Pedroza. He recovered well as transfer the floor for further care. Postop day 1 patient had a lot of postop nausea he did not mobilize with physical therapy much. Postop day to nausea was much better, patient was ambulating well, pain under control and he was ready to be discharged home. Be discharged home with some no heavy lifting bending or twisting precautions. Follow up with the office in 10-14 days. Status at Discharge Cognitive/behavioral status at discharge: Alert and orient x3 Functional status at discharge: uses cane/walker Time Spent with Patient Less than 30 minutes Exam Vital Signs (past 8 hours): Oxygen Delivery Method Room Air Oxygen Flow Rate 0 Narrative Exam Narrative: Patient alert and orient x3. Dressing clean dry intact, but had saturated through earlier today according to nursing and was recently changed. 5/5 motor both lower extremities. Objective Labs Result Diagrams: 02/09/18 05:30 Discharge Plan Discharge Plan Patient Disposition: Home Discharge comment: f/u 1.[address] Pedroza Discharge Med Rec/Prescriptions Prescriptions: New hydroxyzine pamoate 25 mg Capsule 25 mg PO Q4HR PRN (Reason: Nausea And Vomiting) Qty: 14 RF: 0 oxycodone 5 mg Tablet 5 mg PO Q3HR PRN (Reason: Pain, Moderate (4-6)) Qty: 20 RF: 0 Continue doxazosin [Cardura XL] 8 mg Tablet Extended Release 24hr 8 mg PO DAILY RF: 0 propranolol 10 MG tablet 20 mg PO QDAY RF: 0 Follow up/Referrals: Eber Apodaca MD [Primary Care Provider] - Provider Discharge Instructions Activity: limited BLT, 10 lbs lift Skin/Wound/Dressing Care Dressing: may change as needed. may change and shower POD#5 Visit Report/Discharge Packet Visit Report Forms: Stroke Signs & Symptoms Discharge Data Primary Care Provider: Eber Apodaca Attending Provider: Jose Pedroza Admit Date/Time: 02/08/18 08:22 Discharges patient from system. Discharge Date/Time: 02/10/18 16:36 Quality VTE Deep Vein Thrombosis/Pulmonary Embolism Present on Admission: No
--- NOTE | 2018-02-22 16:04 | P.DS_ITS ---
History of Present Illness Date Patient Seen: 02/10/18 Time Patient Seen: 08:40 Chief complaint: L3-S1 laminectomies codes/dorene notes Narrative: Detail of the patient's H&P can be found in the electronic chart. Discharge Providers Date of admission: 02/08/18 08:22 Primary care physician: Eber Apodaca MD Consults: 02/08/18 17:47 Consult to Occupational Therapy Evaluate & Treat Comment: Physician Instructions: Evaluate and treat Consult to Physical Therapy Evaluate & Treat Comment: Physician Instructions: Evaluate and Treat Discharge provider: Kennedi Carter PA-C Summary Discharge Diagnosis: Lumbar stenosis with radiculopathy Hospital Course: Patient was admitted and taken to the operating room where he had aL3-4, L4-5, L5-S1 laminectomy L5-S1 TLIF (post/post innerbody fusion) by Dr. Pedroza. He recovered well as transfer the floor for further care. Postop day 1 patient had a lot of postop nausea he did not mobilize with physical therapy much. Postop day to nausea was much better, patient was ambulating well , pain under control and he was ready to be discharged home. Be discharged home with some no heavy lifting bending or twisting precautions. Follow up with the office in 10-14 days. Status at Discharge Cognitive/behavioral status at discharge: Alert and orient x3 Functional status at discharge: uses cane/walker Time Spent with Patient Less than 30 minutes Exam Vital Signs (past 8 hours): Oxygen Delivery Method Room Air Oxygen Flow Rate 0 Narrative Exam Narrative: Patient alert and orient x3. Dressing clean dry intact, but had saturated through earlier today according to nursing and was recently changed. 5 /5 motor both lower extremities. Objective Labs Result Diagrams: 02/09/18 05:30 Discharge Plan Discharge Plan Patient Disposition: Home Discharge comment: f/u 1.[address] Pedroza Discharge Med Rec/Prescriptions Prescriptions: New hydroxyzine pamoate 25 mg Capsule 25 mg PO Q4HR PRN (Reason: Nausea And Vomiting) Qty: 14 RF: 0 oxycodone 5 mg Tablet 5 mg PO Q3HR PRN (Reason: Pain, Moderate (4-6)) Qty: 20 RF: 0 Continue doxazosin [Cardura XL] 8 mg Tablet Extended Release 24hr 8 mg PO DAILY RF: 0 propranolol 10 MG tablet 20 mg PO QDAY RF: 0 Follow up/Referrals: Eber Apodaca MD [Primary Care Provider] - Provider Discharge Instructions Activity: limited BLT, 10 lbs lift Skin/Wound/Dressing Care Dressing: may change as needed. may change and shower POD#5 Visit Report/Discharge Packet Visit Report Forms: Stroke Signs & Symptoms Discharge Data Primary Care Provider: Eber Apodaca Attending Provider: Jose Pedroza Admit Date/Time: 02/08/18 08:22 Discharges patient from system. Discharge Date/Time: 02/10/18 16:36 Quality VTE Deep Vein Thrombosis/Pulmonary Embolism Present on Admission: No
== END 2018-02-10 16:36 | disposition home or self-care (01) | DRG 455 ==
PROVIDERS: Admitting Provider Orthopaedic Surgery; PCP Family Medicine; Visit Provider Orthopaedic Surgery
PROC: 0SG30AJ Fusion of Lumbosacral Joint with Interbody Fusion Device, Posterior Approach, Anterior Column, Open Approach (ICD-10-PCS; principal; 2018-02-08 10:45)
DX: M48.07 Spinal stenosis, lumbosacral region (principal); M48.062 Spinal stenosis, lumbar region with neurogenic claudication; M51.36 Other intervertebral disc degeneration, lumbar region; J44.9 Chronic obstructive pulmonary disease, unspecified; Z87.891 Personal history of nicotine dependence; G25.0 Essential tremor; R11.0 Nausea
CPT/HCPCS: 36415; 72100; 76001; 85014; 85018; 97110; 97116; 97162; 97165; 97530; 97535; C1776; J0595; J0690; J2250; J2274; J2300; J2405; J2765; J3010

== ENCOUNTER → 2020-11-09 12:20 | Outpatient (CLI) | payer MEDICARE, OTHER, SELFPAY ==
[2018-02-08 08:44] VITALS: BMI 28.3
--- NOTE | 2020-11-09 | DI.MRI.S_ITS ---
PROCEDURE: MR LUMBAR SPINE WO CON INDICATIONS: Other chronic pain TECHNIQUE: Noncontrast sagittal T1 spin echo and T2 fast echo, sagittal STIR, axial T1 and T2 fast spin echo through the lumbar spine. In cases with scoliosis, additional coronal T2 fast spin echo may be performed. COMPARISON: None. FINDINGS: Image quality: Excellent. Alignment and Curvature: There is normal bony alignment. Bone Marrow: Marrow is of normal overall signal. No acute vertebral body compression fractures. Pedicular screw and salazar fixation spanning L5/S1. Spinal Cord: Conus medullaris terminates at the L1 level. Visualized cord demonstrates normal signal and size. Paraspinous Soft Tissues: No paravertebral masses. T12-L1: Normal appearance. L1-L2: Normal appearance. L2-L3: Diffuse disc bulge and facet arthrosis cause moderate right and mild left foraminal stenosis. There is mild central canal stenosis. There is narrowing of the lateral recesses bilaterally encroaching upon the exiting nerve root. There is mild central canal stenosis. L3-L4: Diffuse disc bulge and facet arthrosis causes severe right foraminal stenosis and severe left foraminal stenosis. There is narrowing of the right lateral recess encroaching upon the exiting nerve root. The central canal is patent. L4-L5: Status post right hemilaminectomy. Diffuse disc bulge and facet arthrosis cause severe bilateral foraminal stenosis. The central canal is patent. L5-S1: Status post the discectomy and pedicular salazar and screw fixation. The right foramen is patent. The left foramen has moderate stenosis due to facet hypertrophy. The central canal is patent. IMPRESSION: 1. Multilevel lumbar spondylosis causing multilevel foraminal stenosis as described above. 2. Mild central canal stenosis at L2-3 3. Postoperative changes of right hemilaminectomy at L4-5 and pedicular screw and salazar fixation with discectomy at L5-S1. Dictated by: Dejan Foster M.D. on 11/09/2020 at 14:26 Approved by: Dejan Foster M.D. on 11/09/2020 at 14:41
== END ==
PROVIDERS: Family Provider Nurse Practitioner; PCP Family Medicine; Referring Provider Family Medicine; Visit Provider Family Medicine
DX: M54.42 Lumbago with sciatica, left side (principal); M54.41 Lumbago with sciatica, right side; G89.29 Other chronic pain
CPT/HCPCS: 72148